=== PATIENT | female | born 1995 | race American Indian/Alaskan Native ===

== ENCOUNTER 2018-09-17 01:32 | Emergency (ER) | payer OTHER ==
[2018-09-17] MEDS ORDERED: Acetaminophen/Codeine 300-30 MG Tab PO ONE (01:33)
[2018-09-17] MEDS ORDERED: Diphtheria,Pertussis(Acell),Tetanus Vaccine 0.5 ML SDV IM ONE (01:55)
--- NOTE | 2018-09-17 02:04 | EDM.PDOC ---
ED HPI GENERAL MEDICAL PROBLEM - General Chief Complaint: Skin Complaint Stated Complaint: HEAD INJURY Time Seen by Provider: 09/17/18 01:50 Source of Information: Reports: Patient History Limitations: Reports: No Limitations - History of Present Illness INITIAL COMMENTS - FREE TEXT/NARRATIVE: patient presents with concern for painful area of her head after her hair got caught in a conveyor belt at work just prior to arrival. A coworker was able to hit the safety stop button quickly and she had some of her hair pulled out, but otherwise did not hit her head, torque her neck, or otherwise get injured. Very painful to touch. No headache, blurry vision, neck pain. top of head Pain Score (Numeric/FACES): 8 - Related Data Allergies Allergy/AdvReac Type Severity Reaction Status Date / Time No Known Allergies Allergy Verified 09/17/18 01:50 Home Meds: Home Meds Indomethacin [Indocin] 50 mg PO Q8HR PRN 2 Days #8 cap 09/17/18 [Rx] Past Medical History - Past Health History Medical/Surgical History: Denies Medical/Surgical History Social & Family History - Family History Family Medical History: Noncontributory - Tobacco Use Smoking Status *Q: Never Smoker - Recreational Drug Use Recreational Drug Use: No - Living Situation & Occupation Occupation: Employed ED ROS GENERAL - Review of Systems Review Of Systems: ROS reveals no pertinent complaints other than HPI. Constitutional: Reports: Other (LMP 1mo ago, neg BC ) ED EXAM, SKIN/RASH Exam: See Below Text/Narrative:: General: alert, pleasant female, tearful. Head: there is an approximately 2 inch by 1 inch area of scalp with missing hair and underlying contusion. no active bleeding or open lesions. Very tender to touch. The rest of her head is uninjured and nontender. Pupils equal and reactive, neck freely moveable with no spinous process tenderness. Lungs clear, heart slightly tachycardic, gait normal Course - Vital Signs Text/Narrative:: superficial scalp wound, although very painful. No evidence of underlying traumatic brain injury. Will update tetanus, toradol ordered and discussed home symptomatic treatment. Last Recorded V/S: Last Vital Signs Temp Pulse 107 H 09/17/18 01:35 Resp 18 09/17/18 01:35 BP 144/54 H 09/17/18 01:35 Pulse Ox 100 09/17/18 01:35 - Orders/Labs/Meds Orders: Active Orders 24 hr Category Date Time Status Vaccines to be Administered [RC] PER UNIT ROUTINE Care 09/17/18 01:56 Active Labs: Laboratory Tests 09/17/18 Range/Units 01:54 Urine HCG, Qual Negative (NEGATIVE) Meds: Medications Discontinued Medications Generic Name Dose Route Start Last Admin Trade Name Freq PRN Reason Stop Dose Admin Diphtheria/Tetanus/Acell Pertussis 0.5 ml 09/17/18 01:55 09/17/18 02:12 Adacel IM 09/17/18 01:56 0.5 ml .ONCE ONE Administration Ketorolac Tromethamine 60 mg 09/17/18 02:12 09/17/18 02:18 Toradol IM 09/17/18 02:13 60 mg ONETIME ONE Administration Departure - Departure Time of Disposition: 03:45 Disposition: Home, Self-Care 01 Condition: Good Clinical Impression: Scalp abrasion, Scalp contusion - Discharge Information *PRESCRIPTION DRUG MONITORING PROGRAM REVIEWED*: Yes *COPY OF PRESCRIPTION DRUG MONITORING REPORT IN PATIENT JULIET: No Prescriptions: Indomethacin [Indocin] 50 mg PO Q8HR PRN 2 Days #8 cap PRN Reason: Pain Instructions: Wound Care, Adult Referrals: PCP,None [Primary Care Provider] - Forms: ED Department Discharge Additional Instructions: Toradol shot should last about 6 hours prescription sent in for Indomethacin, which is a potent form of ibuprofen. DO NOT TAKE IBUPROFEN, ALEVE OR ASPIRIN WITH THIS MEDICATION it can be taken every 8 hours, and you should drink lots of water while taking this medication. It can also cause heartburn, which can be treated with something like pepcid or zantac for a couple days, or if severe you can stop it. tylenol #3 given to help with sleep. Do not take acetaminophen with this medication. ice will likely be helpful also it is highly unusual for head wounds to get infected, however, if you notice redness, swelling or pus AFTER the first 36 hours or so and increasing pain, it should be checked in clinic keep wound covered especially while at work or in an environment where it might get dirty for the next 4-5 days. A hat or something similar would be appropriate. the bruise and swelling should slowly resolve over the next week hair will grow back eventually. take very good care - My Orders Last 24 Hours: My Active Orders 09/17/18 01:56 Vaccines to be Administered [RC] PER UNIT ROUTINE - Assessment/Plan Last 24 Hours: My Active Orders 09/17/18 01:56 Vaccines to be Administered [RC] PER UNIT ROUTINE
[2018-09-17] MEDS ORDERED: Ketorolac 60 MG/2 ML SDV IM ONE (02:12)
== END 2018-09-17 02:35 | disposition home or self-care (01) ==
LOC: FB.ED 01:32
DX: S00.03XA Contusion of scalp, initial encounter (principal); Z23 Encounter for immunization; W22.8XXA Striking against or struck by other objects, initial encounter; Y99.0 Civilian activity done for income or pay
CPT/HCPCS: 81025; 90471; 90715; 96372; 99283; A9270; J1885

== ENCOUNTER 2018-10-15 13:05 | Emergency (ER) | payer BC, OTHER ==
--- NOTE | 2018-10-15 14:51 | EDM.PDOC ---
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 Enough to soak a heavy pad, although she has not changed. She continues to bleed slowly today. She is having a little bit of lower abdominal cramping, but not significant. She does not feel lightheaded, dizzy, or have any nausea. Last menstrual cycle somewhere around August 24, and she reports a positive home test. She thinks she is probably 7 weeks along. Partner and, has been with significant other for approximately 7 years. She was on oral contraceptives until about a year ago. She does not drink alcohol, and is taking a vitamin. Has not been STD tested in some time. She denies any urinary symptoms such as dysuria, increased frequency or urgency. She has not been having any abnormal vaginal discharge prior to the bleeding. - Related Data Allergies Allergy/AdvReac Type Severity Reaction Status Date / Time No Known Allergies Allergy Verified 10/15/18 13:12 Home Meds: Home Meds PNV95/Ferrous Fumarate/FA [ Tablet] 1 mg PO DAILY 10/15/18 [History] Past Medical History - Past Health History Medical/Surgical History: Denies Medical/Surgical History Social & Family History - Family History Family Medical History: Noncontributory - Tobacco Use Smoking Status *Q: Never Smoker - Caffeine Use Caffeine Use: Reports: Soda Caffeine Use Comment: rare - Alcohol Use Alcohol Use History: No - Recreational Drug Use Recreational Drug Use: No - Sexual History Sexual History: Reports: Sexually Active, Single Partner, Vaginal [place] - Living Situation & Occupation Living situation: Reports: with Significant Other Occupation: Employed ED ROS GENERAL - Review of Systems Review Of Systems: ROS reveals no pertinent complaints other than HPI. ED EXAM, GENERAL - Physical Exam Exam: See Below Free Text/Narrative:: General: Alert, very pleasant no acute distress. Heart regular, lungs clear throughout with no wheezes or crackles. Abdomen positive bowel sounds, soft nondistended nontender with no rebound or guarding. Very minimal suprapubic discomfort with palpation. Peripheral pulses +2 and there is no lower extremity edema. Pelvic exam shows normal external female genitalia, a sterile speculum was used to visualize the cervix and there is copious bloody discharge in the vaginal vault. Cervix was very carefully wiped with sterile Q-tip and noted to be slightly open. No products of conception were visualized. Gonorrhea and chlamydia swab was collected. Bimanual deferred Course - Vital Signs Text/Narrative:: Initial evaluation completed. Suspect threatened versus incomplete miscarriage, hemodynamically stable with no other concerns Last Recorded V/S: Last Vital Signs Temp 36.4 C 10/15/18 13:05 Pulse 79 10/15/18 13:05 Resp 18 10/15/18 13:05 BP 125/75 10/15/18 13:05 Pulse Ox 99 10/15/18 13:05 - Orders/Labs/Meds Orders: Active Orders 24 hr Category Date Time Status CHLAMYDIA/GC AMPLIFICATION Urgent Lab 10/15/18 15:30 Received PATIENT RETYPE [BBK] Stat Lab 10/15/18 14:40 Results TYPE AND SCREEN [BBK] Stat Lab 10/15/18 14:40 Received Labs: Laboratory Tests 10/15/18 10/15/18 10/15/18 Range/Units 14:40 14:40 14:40 WBC 6.1 (4.5-12.0) X10-3/uL RBC 4.91 (3.23-5.20) x10(6)uL Hgb 14.5 (11.5-15.5) g/dL Hct 42.3 (30.0-51.3) % MCV 86.3 (80-96) fL MCH 29.6 (27.7-33.6) pg MCHC 34.3 (32.2-35.4) g/dL RDW 12.3 (11.5-15.5) % Plt Count 249 (125-369) X10(3)uL HCG, Quant 52 (<5) mIU/mL Urine Color (YELLOW) Urine Appearance (CLEAR) Urine pH (5.0-6.5) Ur Specific [place] (1.010-1.025) Urine Protein (NEGATIVE) mg/dL Urine Glucose (UA) (NORMAL) mg/dL Urine Ketones (NEGATIVE) mg/dL Urine Occult Blood (NEGATIVE) Urine Nitrite (NEGATIVE) Urine Bilirubin (NEGATIVE) Urine Urobilinogen (NEGATIVE) mg/dL Ur Leukocyte Esterase (NEGATIVE) Urine RBC (0-5) Blood Type A POSITIVE Gel Antibody Screen Negative 10/15/18 Range/Units 16:00 WBC (4.5-12.0) X10-3/uL RBC (3.23-5.20) x10(6)uL Hgb (11.5-15.5) g/dL Hct (30.0-51.3) % MCV (80-96) fL MCH (27.7-33.6) pg MCHC (32.2-35.4) g/dL RDW (11.5-15.5) % Plt Count (125-369) X10(3)uL HCG, Quant (<5) mIU/mL Urine Color Red (YELLOW) Urine Appearance Cloudy (CLEAR) Urine pH 5.0 (5.0-6.5) Ur Specific [place] 1.020 (1.010-1.025) Urine Protein 100 H (NEGATIVE) mg/dL Urine Glucose (UA) Normal (NORMAL) mg/dL Urine Ketones Negative (NEGATIVE) mg/dL Urine Occult Blood Large H (NEGATIVE) Urine Nitrite Negative (NEGATIVE) Urine Bilirubin Negative (NEGATIVE) Urine Urobilinogen Normal (NEGATIVE) mg/dL Ur Leukocyte Esterase Small H (NEGATIVE) Urine RBC Packed H (0-5) Blood Type Gel Antibody Screen - Re-Assessments/Exams Free Text/Narrative Re-Assessment/Exam: Pelvic exam completed, os appears slightly open HCG 52, normal hemoglobin Free Text/Narrative Re-Assessment/Exam: Discussed results with patient and her significant other. Explained spontaneous /miscarriage and what to expect over the next couple of days. Follow-up arranged at [facility] on Saturday at 10 AM. Patient's blood type is A+, gonorrhea and chlamydia is pending at the time of this dictation. Will need repeat Quant on Saturday. Reviewed signs or symptoms which prompted for immediate return to the emergency room Note provided for her to be off work until at least Saturday morning All questions were answered Departure - Departure Time of Disposition: 16:43 Disposition: Home, Self-Care 01 Condition: Fair Clinical Impression: Threatened - Discharge Information *PRESCRIPTION DRUG MONITORING PROGRAM REVIEWED*: Not Applicable *COPY OF PRESCRIPTION DRUG MONITORING REPORT IN PATIENT JULIET: Not Applicable Instructions: Threatened Miscarriage Referrals: PCP,None [Primary Care Provider] - Forms: ED Department Discharge Additional Instructions: may take tylenol or acetaminophen for pain (no ibuprofen, aleve, aspirin, or generics) a warm pack or shower to help with cramping feeling is also fine at this time, no sex and do not use tampons or put anything in your vagina possible miscarriage (medical term "threatened ") is very common, and does not mean you did anything wrong, and is not likely to affect future pregnancies. It is best to have one normal period before you try to get again. if you are miscarrying (it is difficult to determine on first visit to ) you will probably bleed more over the next couple of days If you develop ongoing bleeding enough to need to or more heavy pads per hour over 3-4 hours and it doesn't seem to be stopping, return to ER If you develop worsening cramping or pain in your abdomen, and start to feel unwell, feverish, lightheaded or weak all throughout your body, also may need to return to the ER as these can be signs of internal bleeding I will call in the next couple days with results of STD testing for gonorrhea and chlamydia Follow-up at [facility] on Saturday morning 17 October, 10 AM. Please come 15 minutes early to register and complete paperwork. You will be seeing Olivia Blair Test results today (can show to Olivia) HCG blood quant 52, cervix ?slightly open. Hb normal. Blood type: A+ - My Orders Last 24 Hours: My Active Orders 10/15/18 14:40 PATIENT RETYPE [BBK] Stat TYPE AND SCREEN [BBK] Stat 10/15/18 15:30 CHLAMYDIA/GC AMPLIFICATION Urgent - Assessment/Plan Last 24 Hours: My Active Orders 10/15/18 14:40 PATIENT RETYPE [BBK] Stat TYPE AND SCREEN [BBK] Stat 10/15/18 15:30 CHLAMYDIA/GC AMPLIFICATION Urgent
[2018-10-18 05:08] LABS: CHLAMYDIA TRACHOMATIS, NAA Negative (Negative); NEISSERIA GONORRHOEAE, NAA Negative (Negative)
== END 2018-10-15 16:30 | disposition home or self-care (01) ==
LOC: FB.ED 13:05
DX: O20.0 Threatened abortion (principal); Z3A.01 Less than 8 weeks gestation of pregnancy
CPT/HCPCS: 36415; 81001; 84702; 85027; 86850; 86900; 86901; 87210; 87491; 87591; 99284

== ENCOUNTER 2019-12-10 12:11 | Emergency (ER) | payer BC ==
--- NOTE | 2019-12-10 14:09 | EDM.PDOC ---
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 Time Seen by Provider: 12/10/19 12:35 Source of Information: Reports: Patient History Limitations: Reports: No Limitations - History of Present Illness INITIAL COMMENTS - FREE TEXT/NARRATIVE: Patient is at approximately 7 weeks AOG presented to the ED because of spotting and then vaginal bleeding. 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: - Past Surgical History GI Surgical History: Reports: Cholecystectomy Social & Family History - Family History Family Medical History: Noncontributory - Tobacco Use Smoking Status *Q: Unknown Ever Smoked - Caffeine Use Caffeine Use: Reports: Soda Caffeine Use Comment: rare - Recreational Drug Use Recreational Drug Use: No - Sexual History Sexual History: Reports: Sexually Active, Single Partner, Vaginal [place] - Living Situation & Occupation Living situation: Reports: with Significant Other Occupation: Employed ED ROS GENERAL - Review of Systems Review Of Systems: See Below Constitutional: Reports: No Symptoms HEENT: Reports: No Symptoms Respiratory: Reports: No Symptoms Cardiovascular: Reports: No Symptoms Endocrine: Reports: No Symptoms GI/Abdominal: Reports: No Symptoms : Reports: No Symptoms Musculoskeletal: Reports: No Symptoms Skin: Reports: No Symptoms Neurological: Reports: No Symptoms Psychiatric: Reports: No Symptoms Hematologic/Lymphatic: Reports: No Symptoms Immunologic: Reports: No Symptoms ED EXAM, GENERAL - Physical Exam Exam: See Below Exam Limited By: No Limitations General Appearance: Alert, No Apparent Distress Ears: Normal External Exam, Normal Canal Nose: Normal Inspection, Normal Mucosa Throat/Mouth: Normal Inspection, Normal Lips, Normal Teeth Head: Atraumatic, Normocephalic Neck: Normal Inspection, Supple, Non-Tender Respiratory/Chest: No Respiratory Distress, Lungs Clear, Normal Breath Sounds Cardiovascular: Normal Peripheral Pulses, Regular Rate, Rhythm, No Edema, No Gallop GI/Abdominal: Normal Bowel Sounds, Soft, Non-Tender, No Organomegaly Back Exam: Normal Inspection, Full Range of Motion Extremities: Normal Inspection, Normal Range of Motion Neurological: Alert, Oriented, CN II-XII Intact Course - Vital Signs Text/Narrative:: labs discussed with patient I told Margaret that we don't do OB here anymore and that she need to follow up with her doctor with regards to her OB care and she is well aware of it she said. Last Recorded V/S: Last Vital Signs Temp 36.3 C 12/10/19 12:32 Pulse 70 12/10/19 12:32 Resp 16 12/10/19 12:32 BP 120/77 12/10/19 12:32 Pulse Ox 100 12/10/19 12:32 - Orders/Labs/Meds Orders: Active Orders 24 hr Category Date Time Status HCG QUANTITATIVE [CHEM] Stat Lab 12/10/19 12:43 Ordered Labs: Laboratory Tests 12/10/19 Range/Units 12:50 Urine Color Yellow (YELLOW) Urine Appearance Slightly cloudy (CLEAR) Urine pH 5.0 (5.0-6.5) Ur Specific [place] 1.030 H (1.010-1.025) Urine Protein Negative (NEGATIVE) mg/dL Urine Glucose (UA) Normal (NORMAL) mg/dL Urine Ketones Negative (NEGATIVE) mg/dL Urine Occult Blood Large H (NEGATIVE) Urine Nitrite Negative (NEGATIVE) Urine Bilirubin Negative (NEGATIVE) Urine Urobilinogen Normal (NEGATIVE) mg/dL Ur Leukocyte Esterase Negative (NEGATIVE) Urine RBC 5-10 H (0-5) Urine WBC 5-10 H (0-5) Ur Squamous Epith Cells Moderate H (NS,R,O) Urine Bacteria Moderate H (NS) Departure - Departure Time of Disposition: 14:30 Disposition: Home, Self-Care 01 Condition: Good Clinical Impression: Vaginal bleeding before 22 weeks gestation - Discharge Information Instructions: Vaginal Bleeding During , First Trimester Referrals: PCP,None [Primary Care Provider] - Additional Instructions: Please read discharge instructions on vaginal bleeding during Follow up with your clinic doctor tomorrow or Saturday so they can order another HCG level. Sepsis Event Note (ED) - Evaluation Sepsis Screening Result: No Definite Risk - Focused Exam Vital Signs: Vital Signs Temp Pulse Resp BP Pulse Ox 12/10/19 12:32 36.3 C 70 16 120/77 100 - My Orders Last 24 Hours: My Active Orders 12/10/19 12:43 HCG QUANTITATIVE [CHEM] Stat - Assessment/Plan Last 24 Hours: My Active Orders 12/10/19 12:43 HCG QUANTITATIVE [CHEM] Stat
== END 2019-12-10 14:20 | disposition home or self-care (01) ==
LOC: FB.ED 12:11
DX: O20.9 Hemorrhage in early pregnancy, unspecified (principal); Z3A.01 Less than 8 weeks gestation of pregnancy
CPT/HCPCS: 36415; 81001; 84702; 99284